=== PATIENT | male | born 1980 | race Caucasian/White ===

== ENCOUNTER 2018-03-30 12:53 | Emergency (ER) | payer BC ==
[2018-03-30] MEDS ORDERED: Diazepam 5 MG TAB ONE (14:20)
[2018-03-30] MEDS ORDERED: Ketorolac Tromethamine 60 MG/2 ML VIAL ONE (14:21)
[2018-03-30] MEDS ORDERED: Triamcinolone 40 MG/ML VIAL IM SCH (14:30)
== END 2018-03-30 15:00 | disposition home or self-care (01) ==
LOC: ERS 12:53
DX: M54.41 Lumbago with sciatica, right side (principal); F17.210 Nicotine dependence, cigarettes, uncomplicated; F41.9 Anxiety disorder, unspecified; Z79.899 Other long term (current) drug therapy
CPT/HCPCS: 96372; J1885; J3301

== ENCOUNTER 2018-05-16 13:56 | Outpatient (CLI) | payer BC ==
[2018-05-16 15:17] LABS: #Lymphocytes 1.6 thou/uL (1.20-3.40); #Monocytes 0.6 thou/uL (0.11-0.59); #Neutrophils 4.1 thou/uL (1.40-6.50); %Basophils 0.4 % (0.0-1.0); %Eosinophils 0.7 % (0.0-10.0); %Lymphocytes 24.5 % (21.0-51.0); %Monocytes 9.9 % (0.0-10.0); %Neutrophils 64.5 % (42.0-75.0); Hemoglobin 12.9 g/dL (14.0-18.0); Mean Corpuscular HGB CONC 33.8 g/dL (32.0-36.0); Mean Corpuscular Hemoglobin 31.6 pg (27.0-31.0); Mean Corpuscular Volume 93.6 fL (78.0-98.0); Mean Platelet Volume 6.6 fL (7.4-10.4); Platelet Count 256 thou/uL (130-400); RBC Distribution Width 12.8 % (11.5-14.5); Red Blood Cell (RBC) Count 4.08 mill/uL (4.70-6.10); White Blood Cell (WBC) Count 6.3 thou/uL (4.8-10.8)
[2018-05-16 15:22] LABS: Prothrombin Time 12.8 SEC (12.0-14.7)
[2018-05-16 15:23] LABS: PTT 32.2 SEC (22.9-36.1)
[2018-05-16 15:31] LABS: Anion Gap 13 mmol/L (10-20); BUN (Urea Nitrogen) 8 mg/dL (8.9-20.6); Calc. Creatinine Clearance 0 mL/min (70-130); Calcium 9.2 mg/dL (7.8-10.44); Carbon Dioxide 25 mmol/L (22-29); Chloride 103 mmol/L (98-107); Estimated GFR-MDRD Greater than 90; Glucose 97 mg/dL (70-105); Potassium 4.3 mmol/L (3.5-5.1); Sodium 137 mmol/L (136-145)
--- NOTE | 2018-05-17 07:29 | EKG ---
Test Reason : Blood Pressure : / mmHG Vent. Rate : 083 BPM Atrial Rate : 083 BPM P-R Int : 144 ms QRS Dur : 090 ms QT Int : 342 ms P-R-T Axes : 083 090 073 degrees QTc Int : 401 ms Normal sinus rhythm Rightward axis Borderline ECG No previous ECGs available Confirmed by DR. Panfilo SPRING ([id number]) on 05/17/2018 7:29:22 AM Referred By: LY Confirmed By:DR. Panfilo SPRING
== END 2018-05-16 13:57 | disposition home or self-care (01) ==
LOC: LABBT 13:56
PROVIDERS: ATTEND Surgery
DX: Z01.818 Encounter for other preprocedural examination (principal); M51.16 Intervertebral disc disorders with radiculopathy, lumbar region
CPT/HCPCS: 80048; 85025; 85610; 85730; 93005; 93010

== ENCOUNTER 2018-05-17 09:09 | Inpatient (IN) | payer BC ==
[2018-05-16 14:39] VITALS: BMI 22.3
[2018-05-17] MEDS ORDERED: CEFAZOLIN 2 GM/50 ML BAG ONE (10:04)
[2018-05-17] MEDS ORDERED: Thrombin 5000 UNITS/5 ML VIAL ONE (13:02)
[2018-05-17] MEDS ORDERED: Sodium Chloride 0.9% 10 ML ONE (13:02)
[2018-05-17] MEDS ORDERED: Bacitracin Zinc Ointment 30 gm TUBE ONE (13:02)
[2018-05-17] MEDS ORDERED: Fentanyl 100 MCG/2 ML VIAL ONE ×5 (13:16→16:11)
[2018-05-17] MEDS ORDERED: Bisacodyl 10 MG SUPP PR PRN (15:31)
[2018-05-17] MEDS ORDERED: Milk Of Magnesia 30 ML UDCUP PO PRN (15:31)
[2018-05-17] MEDS ORDERED: Fleet Enema 133 ML BOT PR PRN (15:31)
[2018-05-17] MEDS ORDERED: Acetaminophen/Codeine 30-300mg Tablet PO PRN (15:31)
[2018-05-17] MEDS ORDERED: traMADol HCl 50 MG TAB PO PRN (15:31)
[2018-05-17] MEDS ORDERED: Mag-Al 1200 mg/1200 mg/30 ML UDCUP PO PRN (15:31)
[2018-05-17] MEDS ORDERED: Promethazine HCl 25 MG/ML VIAL IM PRN (15:31)
[2018-05-17] MEDS ORDERED: Acetaminophen 325 MG TAB PO PRN (15:31)
[2018-05-17] MEDS ORDERED: Methocarbamol 500 MG TAB PO PRN (15:34)
[2018-05-17] MEDS ORDERED: Gabapentin 300 MG CAP PO PRN (15:34)
[2018-05-17] MEDS ORDERED: CEFAZOLIN/Water 2 GM/20 ML SYRINGE SLOW IVP SCH (15:45)
[2018-05-17] MEDS ORDERED: Meperidine HCl/PF 25 MG/ML VIAL SLOW IVP PRN (16:32)
[2018-05-17] MEDS ORDERED: HYDROmorphone 2 MG/ML VIAL SLOW IVP PRN (16:32)
[2018-05-17] MEDS ORDERED: Ondansetron HCl/PF 4 MG/2 ML Vial IVP PRN (16:32)
[2018-05-17] MEDS ORDERED: Promethazine HCl 25 MG/ML VIAL IM/IV PRN (16:32)
[2018-05-17] MEDS: CEFAZOLIN 2 GM/50 ML-DEXTROSE 2 GM in Premix Bag 1 BAG IVPB SCH (18:20)
[2018-05-17] MEDS: HYDROcodone/Acetaminophen 7.5/325 mg Tablet PO PRN (18:20)
[2018-05-17] MEDS: Sodium Chloride 0.9% 1,000 ML IV SCH (18:23)
[2018-05-17] MEDS: Morphine 4 MG/ML VIAL SLOW IVP PRN ×2 (20:34→23:05)
[2018-05-17] MEDS: busPIRone HCl 10 MG TAB PO SCH (20:35)
[2018-05-18] MEDS: HYDROcodone/Acetaminophen 7.5/325 mg Tablet PO PRN ×3 (00:59→10:28)
[2018-05-18] MEDS: CEFAZOLIN 2 GM/50 ML-DEXTROSE 2 GM in Premix Bag 1 BAG IVPB SCH (01:00)
[2018-05-18] MEDS: Morphine 4 MG/ML VIAL SLOW IVP PRN (02:57)
[2018-05-18] MEDS: Sodium Chloride 0.9% 1,000 ML IV SCH (04:45)
[2018-05-18] MEDS: busPIRone HCl 10 MG TAB PO SCH (08:56)
[2018-05-18 09:41] VITALS: BP 116/67; TEMP 98.3
--- NOTE | 2018-05-19 12:52 | DIS ---
DATE OF ADMISSION: 05/17/2018 DATE OF DISCHARGE: 05/18/2018 DISCHARGE DIAGNOSES: 1. Low back pain with right lumbar radiculopathy. 2. Right L4-L5 lumbar herniated nucleus pulposus. HOSPITAL COURSE: Mr. Blanco was admitted on 05/17/2018, to undergo a right L4-L5 hemilaminotomy, foraminotomy, and diskectomy. The patient's surgery was without complication. He required one overnight stay for pain control postoperatively. At the time of discharge, the patient was absolutely thrilled with his outcome postoperatively. He had some mild incisional back pain, but complete resolution of his right leg pain. He had good strength in the right bilateral lower extremities and walked with a nonantalgic gait. He had good sensation in bilateral legs. As he met criteria for discharge, appropriate outpatient followup appointments and the patient education were provided. Again, the patient and his mother were very pleased with his outcome postoperatively. He understood to continue with his pain management provider to receive medications. He also understood to call the office with questions or concerns prior to his next followup appointment, but otherwise was doing very well postoperatively. Job ID: [id number]
== END 2018-05-18 11:07 | disposition home or self-care (01) | DRG 520 ==
LOC: SDC 09:09 → SURG A 17:41
PROVIDERS: ADMIT Surgery; ATTEND Surgery
PROC: 0SB20ZZ Excision of Lumbar Vertebral Disc, Open Approach (ICD-10-PCS; principal; 2018-05-17)
DX: M51.16 Intervertebral disc disorders with radiculopathy, lumbar region (principal); M51.26 Other intervertebral disc displacement, lumbar region
CPT/HCPCS: 76000; 80048; 85025; 85610; 85730; 93005; 93010; 96374; J2270; J3010; J3370; J3490